=== PATIENT | female | born 2000 | race Two or more races ===

== ENCOUNTER 2024-08-12 09:39 | Outpatient (RCR) | payer MEDICAID, SELFPAY ==
--- NOTE | 2024-07-09 08:03 | XR_ITS ---
Examination: Biophysical profile, ultrasound Date and time of exam: July 09, 2024 0807 hours INDICATIONS: Obesity complicating Technique: Multiple transabdominal sonographic images of the pelvis abdomen obtained. Attention is directed to the breathing movement, gross body movement, amniotic fluid volume and tone. Findings: Amniotic fluid index 12.1 cm Total biophysical profile is 8 of 8. breathing movement is 2. Gross body movement is 2. tone is 2. Qualitative amniotic fluid volume is 2 Impression: Biophysical profile is 8 of 8.
[2024-07-09 08:26] VITALS: BP 157/79; PULSE 98; RESP 18; TEMP 36.7
[2024-07-09 08:44] VITALS: BP 129/78
[2024-07-09 08:54] VITALS: BP 133/75
--- NOTE | 2024-07-09 09:02 | PC.NURSE ---
Alen JASON CNM CALLED AND REVIEWED BP TRENDS. ORDERS RECEIVED FOR PIH LABS. IF NORMAL THEN PT CAN GO HOME.
[2024-07-09 09:24] LABS: Collection Type, Urine Clean Catch; RBC,Urine 0 /hpf (0-3)
[2024-07-09 09:56] LABS: Basophils % (Auto) 0 % (0-2.5); Eosinophils % (Auto) 0 % (0-10); Hematocrit 33.7 % (36.0-46.0); Hemoglobin 11.1 g/dL (12.0-16.0); Immature Granulocytes % (Auto) 0 % (0-0); Immature Granulocytes Auto 0.03 Thou/mm3 (0.00-0.00); Lymphocytes # (Auto) 1.6 Thou/mm3 (1.0-4.8); Lymphocytes % (Auto) 21 % (10-50); Mean Corpuscular HGB Conc 32.9 g/dl (31.0-37.0); Mean Corpuscular Hemoglobin 26.3 pg (25.0-35.0); Mean Corpuscular Volume 80 fL (80-100); Monocytes # (Auto) 0.4 Thou/mm3 (0.0-0.8); Monocytes % (Auto) 6 % (0-12); Neutrophils # (Auto) 5.5 Thou/mm3 (1.8-7.7); Neutrophils % (Auto) 73 % (37-80); Nucleated Red Blood Cell % 0 /100 WBC (0); Platelet Count 410 Thou/mm3 (140-440); RDW Standard Deviation 41.1 fL (36.4-46.3); Red Blood Count 4.22 Miln/mm3 (4.00-5.20); White Blood Count 7.6 Thou/mm3 (3.6-11.0)
[2024-07-09 09:57] LABS: Bacteria,Urine Rare; Bilirubin,Urine Negative (Negative); Blood,Urine Negative (Negative); Clarity,Urine Clear (Clear/Hazy); Color,Urine Lt-Yellow (Lt Yel-Yel); Glucose, Urine Negative (Negative); Ketones,Urine Negative (Negative); Leukocyte Esterase,Urine Negative (Negative); Nitrite,Urine Negative (Negative); Protein,Urine Negative (Neg - Trace); Renal Epithelial Cells,Urine < 1 /hpf (0-5); Specific Gravity,Urine 1.008 (1.001-1.035); Squamous Epithelial Cell,Urine 1 /hpf (0-5); Transitional Epi Cells,Urine < 1 /hpf (0-5); Urobilinogen,Urine Negative mg/dL (0.0-1.0); WBC,Urine 1 /hpf (0-5)
[2024-07-09 10:15] LABS: Alanine Aminotransferase 23 U/L (10-49); Albumin, Serum 4.2 gm/dL (3.5-5.0); Albumin/Globulin Ratio 1.3 (1.2-2.2); Alkaline Phosphatase 199 U/L (46-116); Anion Gap 7 (7-16); Aspartate Amino Transferase 27 U/L (0-34); BUN/Creatinine Ratio 10 Ratio (12-20); Bilirubin,Total 0.4 mg/dL (0.3-1.2); Blood Urea Nitrogen 6 mg/dL (9-23); Calcium 9.1 mg/dL (8.3-10.6); Calcium (Corrected) 9.1 mg/dL (8.5-10.1); Carbon Dioxide 22.4 mMol/L (20.0-31.0); Chloride 105 mMol/L (98-107); Creatinine (Component) 0.6 mg/dL (0.6-1.3); Globulin 3.3 gm/dL (2.3-3.5); Glucose 74 mg/dL (74-106); LDH (Lactate Dehydrogenase) 165 U/L (120-246); Osmolality,Calculated 264 (275-295); Partial Thromboplastin Time 27.5 Seconds (22.0-36.0); Prothrombin Time 10.6 Seconds (9.0-12.2); Sodium 134 mMol/L (136-145); Total Protein 7.5 gm/dL (5.7-8.2); Uric Acid 4.9 mg/dL (3.1-7.8); eGFR > 60 See Note
[2024-07-09 11:34] LABS: Fibrinogen 773 mg/dL (175-375)
--- NOTE | 2024-07-16 08:03 | XR_ITS ---
Examination: Biophysical profile, ultrasound Date and time of exam: July 16, 2024 0810 hours INDICATIONS: Diagnosis obesity complicating Technique: Multiple transabdominal sonographic images of the pelvis abdomen obtained. Attention is directed to the breathing movement, gross body movement, amniotic fluid volume and tone. Findings: Amniotic fluid index 15.7 cm Total biophysical profile is 8 of 8. breathing movement is 2. Gross body movement is 2. tone is 2. Qualitative amniotic fluid volume is 2 Impression: Biophysical profile is 8 of 8.
[2024-07-16 08:38] VITALS: BP 126/83; PULSE 79; RESP 16; TEMP 36.8
--- NOTE | 2024-07-24 13:59 | XR_ITS ---
Examination: Biophysical profile, ultrasound Date and time of exam: July 24, 2024 1401 hours INDICATIONS: Maternal obesity Technique: Multiple transabdominal sonographic images of the pelvis abdomen obtained. Attention is directed to the breathing movement, gross body movement, amniotic fluid volume and tone. Findings: Amniotic fluid index 13.8 cm Total biophysical profile is 6 of 8. breathing movement is 2. Gross body movement is 0 tone is 2. Qualitative amniotic fluid volume is 2 Impression: Biophysical profile is 6 of 8.
[2024-07-24 15:37] VITALS: BP 128/74; PULSE 86; RESP 16
--- NOTE | 2024-07-30 08:10 | XR_ITS ---
Examination: Biophysical profile, ultrasound Date and time of exam: July 30, 2024 0811 hours INDICATIONS: Maternal obesity Technique: Multiple transabdominal sonographic images of the pelvis abdomen obtained. Attention is directed to the breathing movement, gross body movement, amniotic fluid volume and tone. Findings: Amniotic fluid index 15.3 cm Total biophysical profile is 8 of 8. breathing movement is 2. Gross body movement is 2. tone is 2. Qualitative amniotic fluid volume is 2 Impression: Biophysical profile is 8 of 8.
[2024-07-30 08:48] VITALS: BP 129/83; PULSE 97; RESP 16; TEMP 37.1
--- NOTE | 2024-08-06 08:19 | XR_ITS ---
Examination: Biophysical profile, ultrasound Date and time of exam: August 06, 2024 0835 hours INDICATIONS: Diagnosis maternal obesity Technique: Multiple transabdominal sonographic images of the pelvis abdomen obtained. Attention is directed to the breathing movement, gross body movement, amniotic fluid volume and tone. Findings: Amniotic fluid index 6.1cm Total biophysical profile is 8 of 8. breathing movement is 2. Gross body movement is 2. tone is 2. Qualitative amniotic fluid volume is 2 Impression: Biophysical profile is 8 of 8.
[2024-08-06 09:24] VITALS: BP 123/69; PULSE 86; RESP 16; TEMP 36.7
--- NOTE | 2024-08-12 09:51 | XR_ITS ---
Examination: Biophysical profile, ultrasound Date and time of exam: August 12, 2024 0952 hrs. Indications: Maternal obesity diagnosis with pelvic cramping today Technique: Multiple transabdominal sonographic images of the pelvis abdomen obtained. Attention is directed to the breathing movement, gross body movement, amniotic fluid volume and tone. Findings: Amniotic fluid index 12.8 cm Total biophysical profile is 8 of 8. breathing movement is 2. Gross body movement is 2. tone is 2. Qualitative amniotic fluid volume is 2 Impression: Biophysical profile is 8 of 8.
[2024-08-12 10:27] VITALS: BP 132/78; PULSE 94; RESP 16; TEMP 37.1
== END 2024-08-12 23:59 | disposition home or self-care (01) ==
LOC: S4S1 09:39
PROVIDERS: PCP Physician Assistant; Referring Provider Nurse Practitioner Women's Health; Visit Provider Nurse Practitioner Women's Health
DX: O99.213 Obesity complicating pregnancy, third trimester (principal); E66.9 Obesity, unspecified; Z3A.39 39 weeks gestation of pregnancy
CPT/HCPCS: 36415; 59025; 76819; 80053; 81001; 83615; 84550; 85025; 85384; 85610; 85730

== ENCOUNTER 2024-08-12 14:40 | Inpatient (IN) | payer MEDICAID, SELFPAY ==
[2024-08-12 15:22] VITALS: BP 129/83; PULSE 93; RESP 18; TEMP 36.8
[2024-08-12 15:39] VITALS: BMI 49.4
[2024-08-12 16:01] LABS: Basophils % (Auto) 0 % (0-2.5); Eosinophils % (Auto) 0 % (0-10); Hematocrit 34.1 % (36.0-46.0); Hemoglobin 11.1 g/dL (12.0-16.0); Immature Granulocytes % (Auto) 0 % (0-0); Immature Granulocytes Auto 0.01 Thou/mm3 (0.00-0.00); Lymphocytes # (Auto) 1.5 Thou/mm3 (1.0-4.8); Lymphocytes % (Auto) 22 % (10-50); Mean Corpuscular HGB Conc 32.6 g/dl (31.0-37.0); Mean Corpuscular Hemoglobin 26.1 pg (25.0-35.0); Mean Corpuscular Volume 80 fL (80-100); Monocytes # (Auto) 0.4 Thou/mm3 (0.0-0.8); Monocytes % (Auto) 6 % (0-12); Neutrophils # (Auto) 5.1 Thou/mm3 (1.8-7.7); Neutrophils % (Auto) 72 % (37-80); Nucleated Red Blood Cell % 0 /100 WBC (0); Platelet Count 425 Thou/mm3 (140-440); RDW Standard Deviation 42.7 fL (36.4-46.3); Red Blood Count 4.25 Miln/mm3 (4.00-5.20)
[2024-08-12 16:40] LABS: Syphilis Nonreactive (Nonreactive)
[2024-08-12] MEDS: MISOPROSTOL 50 mCg TABLET PO ×2 (17:31→21:33)
[2024-08-12 18:04] VITALS: BP 135/72; PULSE 81
[2024-08-12 19:29] VITALS: BP 123/58; PULSE 88; RESP 17; TEMP 36.8
[2024-08-12] MEDS: RINGERS LACTATED 1000 ML 1,000 ML 100 ML IV (23:36)
[2024-08-13] VITALS (104 sets, daily range): BP systolic 107–159; BP diastolic 56–92; PULSE 73–210; RESP 15–17; TEMP 36.7–37; O2SAT 91–100
[2024-08-13] MEDS: RINGERS LACTATED 1000 ML 1,000 ML 100 ML IV ×2 (00:07→02:09)
[2024-08-13] MEDS: LIDOCAINE HCL 1% 20 ML VIAL INFL (05:28)
[2024-08-13] MEDS: METHYLERGONOVINE INJ 0.2 MG/ML VIAL IM (05:46)
[2024-08-13] MEDS: TRANEXAMIC ACID 1,000 MG IVPB 1,000 MG/100 ML BAG 200 MG IV (05:48)
[2024-08-13] MEDS: OXYTOCIN in NS 20 units 20 UNIT/1,000 ML BAG 125 UNIT IV (05:50)
--- NOTE | 2024-08-13 06:05 | OBDSUM_ITS ---
Data (Abbasi) Data : 1 Para: 0 Term: 0 : 0 : 0 Delivery Data (Abbasi) Labor Data Induction: Yes ROM Date: 08/13/24 ROM Time: 01:04 Rupture Type: SROM Amniotic Fluid: Particulate Meconium Delivery Data Labor Onset Stage 1 Date: 08/13/24 Labor Onset Stage 1 Time: 03:56 Labor Onset Stage 2 Date: 08/13/24 Labor Onset Stage 2 Time: 05:05 Delivery Date: 08/13/24 Delivery Time: 05:35 Placenta Delivery Date: 08/13/24 Placenta Delivery Time: 05:38 Delivered by: Jason Lazaro Delivery nurse: Franklyn Lam Other staff at delivery: Nursery Nurse Other staff at delivery: Adelaida Mejia Delivery Method Delivery: Vaginal Delivery Type: Spontaneous Presentation: Vertex Anesthesia Type Primary Anesthesia: Epidural Placenta Placenta Delivery: Spontaneous Umbilical Cord Umbilical Vessels: 3 Nuchal Cord: x1 [place] Data (Abbasi) [place] Data Gender: Female Infant Weight Grams: 3540 1 Minute Total: 9 5 Minute Total: 9
--- NOTE | 2024-08-13 06:08 | PD.LDHP ---
Documentation for date of: 08/13/24 OB Labor/Induct. HPI History of Present Illness : 1 Para: 0 NOVA: 08/19/24 History of present illness: 23-year-old G1, P0 at 39 weeks, NOVA 08/19/2024 presented to labor and delivery for her scheduled induction of labor due to elevated BMI at 39 weeks. On presentation patient had no contractions, reported good movements and denied any vaginal bleeding or leakage of fluid Current has been uncomplicated except for her elevated BMI and some borderline blood pressures. History of Present Adequate Care: Yes Labs Labs: Negative: Hepatitis B, HIV, Chlamydia, Gonorrhea and Group Beta Strep Review of Systems Review of Systems Systems Reviewed: All systems reviewed, normal except as documented Meds Home Medications and Allergies Home Medications ?Medication ?Instructions ?Recorded ?Confirmed ?Type vits no.130-ferrous fum 1 tab PO QDAY 08/12/24 08/12/24 History 27 mg iron-folic acid 800 mcg tablet ( Vitamin) Allergies Allergy/AdvReac Type Severity Reaction Status Date / Time No Known Allergies Allergy Verified 08/12/24 14:59 OB Exam Physical Exam Vital signs: Temp Pulse Resp BP Pulse Ox 98.5 F 95 17 143/63 H 99 08/13/24 04:00 08/13/24 06:03 08/13/24 04:00 08/13/24 06:03 08/13/24 05:32 Constitutional Constitutional: no acute distress Routine HEENT Exam Head: Present normocephalic and atraumatic Eye: Present EOMI and PERRL ENT: Present mucous membranes moist Routine Neck Exam Neck: Present supple and trachea midline Routine Cardiovascular Exam Cardiovascular: Present RRR Routine Abdominal Exam Abdominal: Present soft and normoactive bowel sounds Detailed Labor and Delivery Exam Dilation (cm): 3 Effacement (%): 50 Cervix position: mid Baseline heart rate: 145 monitor accelerations: 15x15 monitor decelerations: None Routine Extremities Exam Extremities: Present full ROM Routine Skin Exam Skin: Present intact, dry and warm Routine Neurological Exam Neurological: Present alert, oriented X3 and CN II-XII intact Routine Psychiatric Exam Psychiatric: Present normal affect and normal thought process OB Results Labs 08/12/24 15:45 Labs: Short CBC 08/12/24 Range/Units 15:45 WBC 7.0 (3.6-11.0) Thou/mm3 Hgb 11.1 L (12.0-16.0) g/dL Hct 34.1 L (36.0-46.0) % Plt Count 425 (140-440) Thou/mm3 OB Assessment & Plan Assessment and Plan (1) Obesity affecting : Status: Acute (2) BMI 50.0-59.9, adult: Status: Acute (3) Encounter for induction of labor: Status: Acute Assessment and plan: Admit to Inpatient to labor and Delivery GBS: neg Vital Signs per protocol External monitor/Tocometry Activity: Bedrest w/bathroom privileges Ambulate in Latent Labor with intact membrane Intake and Urine Output Monitoring Urine catheter as needed Diet: As tolerated in latent labor Ice Chips in active labor Intravenous Fluids: Lactated Ringers at 125 cc/hour Labs Complete Blood Count Blood Type and Antibody Screen (Indirect Osmani) RPR COVID-19 RNA Plan: Misoprostol for cervical ripening until favorable, proceed to oxytocin once ripening is achieved Estimated weight 7-1/2 pounds Anticipate vaginal delivery. Pain management as per protocol, epidural if desired.
[2024-08-13] MEDS: IBUPROFEN TAB 400 MG TABLET 800 MG PO (06:26)
[2024-08-13] MEDS: BENZO/LANO/ALOE (Dermoplast) 60 GM CAN 1 SPRAY TOP (06:26)
[2024-08-13] MEDS: MINERAL OIL 30 ML UDC TOP (06:27)
[2024-08-13] MEDS: LIDOCAINE HCL 1% 20 ML VIAL (06:33)
[2024-08-13] MEDS: AMOXICILLIN/POT CLAV 875 TABLET 1 TAB PO ×2 (08:33→21:13)
[2024-08-13] MEDS: DOCUSATE SOD 100 MG CAPSULE PO (08:34)
[2024-08-13] MEDS: ACETAMINOPHEN 325 MG TABLET 650 MG PO (15:34)
[2024-08-14 03:48] VITALS: BP 123/64; PULSE 96; RESP 16; TEMP 36.7; O2SAT 98
[2024-08-14] MEDS: IBUPROFEN TAB 400 MG TABLET 800 MG PO (04:17)
[2024-08-14 06:52] LABS: Basophils % (Auto) 0 % (0-2.5); Eosinophils % (Auto) 1 % (0-10); Hematocrit 26.5 % (36.0-46.0); Immature Granulocytes % (Auto) 0 % (0-0); Immature Granulocytes Auto 0.03 Thou/mm3 (0.00-0.00); Lymphocytes # (Auto) 1.7 Thou/mm3 (1.0-4.8); Lymphocytes % (Auto) 22 % (10-50); Mean Corpuscular HGB Conc 32.8 g/dl (31.0-37.0); Mean Corpuscular Hemoglobin 26.6 pg (25.0-35.0); Mean Corpuscular Volume 81 fL (80-100); Monocytes # (Auto) 0.5 Thou/mm3 (0.0-0.8); Monocytes % (Auto) 7 % (0-12); Neutrophils # (Auto) 5.7 Thou/mm3 (1.8-7.7); Neutrophils % (Auto) 71 % (37-80); Nucleated Red Blood Cell % 0 /100 WBC (0); Platelet Count 316 Thou/mm3 (140-440); RDW Standard Deviation 43.8 fL (36.4-46.3); Red Blood Count 3.27 Miln/mm3 (4.00-5.20)
[2024-08-14 06:55] LABS: Hemoglobin 8.7 g/dL (12.0-16.0)
[2024-08-14 07:05] VITALS: BP 138/89; PULSE 98; RESP 18; TEMP 36.7; O2SAT 98
--- NOTE | 2024-08-14 07:25 | PC.LAC ---
mom stated she felt she didn't have enough milk, stated that baby very sleepy. at this time baby is wrapped up in blankets in bassinet. explained to parents that baby would do better skin to skin in this first 24 hour period and that baby would wake up for feeds better being on mom. Did education on skin to skin, belly size, colostrum.
[2024-08-14] MEDS: DOCUSATE SOD 100 MG CAPSULE PO (09:27)
[2024-08-14] MEDS: AMOXICILLIN/POT CLAV 875 TABLET 1 TAB PO (09:27)
--- NOTE | 2024-08-24 05:13 | ESDS_ITS ---
DS: Providers Provider Date of admission: 08/12/24 14:40 Primary care physician: Physician No Primary/Family Admitting Provider: Jason Lazaro MD Attending Provider on Admission: Jason Lazaro MD Consults: 08/13/24 07:07 Referral Routine Comment: Attending Provider on DC: Jason Lazaro MD Discharging Provider: Jason Lazaro MD DS: Diagnosis Discharge Diagnosis (1) Encounter for induction of labor: Status: Acute (2) Obesity affecting : Status: Acute Problem List Completed Was Problem List Reviewed/Reconciled?: Yes Summary/Hosp Course Brief History: 23-year-old G1, P0 at 39 weeks, NOVA 08/19/2024 presented to labor and delivery for her scheduled induction of labor due to elevated BMI at 39 weeks. On presentation patient had no contractions, reported good movements and denied any vaginal bleeding or leakage of fluid Current has been uncomplicated except for her elevated BMI and some borderline blood pressures. Time Spent with Patient Time attestation: Total time spent providing and/or coordinating discharge services: Exam Vital Signs Temp Pulse Resp BP Pulse Ox O2 Del Method 98.1 F 98 18 138/89 H 98 Room Air 08/14/24 07:05 08/14/24 07:05 08/14/24 07:05 08/14/24 07:05 08/14/24 07:05 08/14/24 07:05 Discharge Plan Plan Patient Disposition: HOME (Self Care) Patient condition on transfer: Stable Prescriptions/Referrals Prescriptions/Med Rec: New docusate sodium [Stool Softener] 100 mg capsule 100 mg PO QDAY 30 Days Qty: 30 0RF Continued Vitamin 27 mg iron- 800 mcg tablet 1 tab PO QDAY Discontinued aspirin 81 mg Tablet 81 mg PO QDAY Referrals: No Primary/Family,Physician [Primary Care Provider] - Jazmín Hwang CNM [Certified Nurse [employer]low Mold Operator] - Patient/Caregiver Discharge Instructions Meds to Beds: Yes Discharge Activity: activity as tolerated Education Materials: After a Vaginal , Understanding Blues, Nutrition While Print Language: Trinidadian Activity Restrictions/Additional Instructions: Follow up with OB in 3 weeks for check up Stand Alone Forms: [facility]a Award Info., Patient Portal Info Letter Discharge Order Discharge Orders: Discharge (Routine); Ordered 08/14/24 Ordered By: Jason Lazaro Planned Discharge Date 08/14/25
== END 2024-08-14 14:35 | disposition home or self-care (01) | DRG 560 ==
LOC: S4SX 08-13 06:03 → S4NX 08-13 09:00
PROVIDERS: Admitting Provider Obstetrics & Gynecology; Visit Provider Obstetrics & Gynecology
DX: O99.214 Obesity complicating childbirth (principal); Z37.0 Single live birth; Z3A.39 39 weeks gestation of pregnancy; O69.81X0 Labor and delivery complicated by cord around neck, without compression, not applicable or unspecified; O77.0 Labor and delivery complicated by meconium in amniotic fluid
CPT/HCPCS: 36415; 59409; 85025; 86780; 86850; 86900; 86901; 94762; J2210; J2590; J2795; J3010; J3490; J7120; A9270